=== PATIENT | female | born 1990 | race Hispanic/Latino ===

== ENCOUNTER 2017-06-08 20:52 | Emergency (ER) | payer OTHER ==
[~2017-06-08] VITALS: Ht 154.9 cm; Wt 50.9 kg
[2017-06-08] MEDS ORDERED: KETOROLAC TROMETHAMINE 60 MG/2 ML VIAL IM ONE (21:30)
[2017-06-08] MEDS ORDERED: BELLADONNA ALK/PHENOBARBITAL 5 ML UDC PO ONE (21:30)
[2017-06-08] MEDS ORDERED: LIDOCAINE VISC 2% SOLN 15 ML UDC PO ONE (21:30)
[2017-06-08] MEDS ORDERED: MAGNESIUM/ALUMINUM/SIMETHICONE 30 ML UDC PO ONE (21:30)
[2017-06-08] MEDS ORDERED: KETOROLAC TROMETHAMINE 30 MG/ML VIAL IV STA (21:35)
[2017-06-08] MEDS ORDERED: IOPAMIDOL 370 MG/ML 50ML INFUS..BTL INJ ONE (22:30)
[2017-06-08 23:21] VITALS: BP 142/72
== END 2017-06-08 23:17 | disposition home or self-care (01) ==
LOC: FSED 20:52
DX: R07.89 Other chest pain (principal); R07.1 Chest pain on breathing
CPT/HCPCS: 71046; 71260; 80053; 85025; 93005; 96374; 99283; J1885 ×2; Q9967

== ENCOUNTER 2019-05-19 08:19 | Emergency (ER) | payer SELFPAY ==
[~2019-05-19] VITALS: Ht 154.9 cm; Wt 62.3 kg
[2019-05-19] MEDS ORDERED: ONDANSETRON HCL INJ 2MG/ML 2ML 2 MG/ML VIAL IV STA (09:00)
[2019-05-19] MEDS ORDERED: SODIUM CHLORIDE 0.9% 1000ML 1,000 ML IV STA (09:00)
[2019-05-19] MEDS ORDERED: SODIUM CHLORIDE 0.9% 1000ML 1,000 ML ONE (09:33)
[2019-05-19] MEDS ORDERED: CIPRO500 MG PO (10:21)
[2019-05-19] MEDS ORDERED: ZOFRAN4 MG SL (10:21)
[2019-05-19 10:32] VITALS: BP 139/95
== END 2019-05-19 11:11 | disposition home or self-care (01) ==
LOC: FSED 08:19
DX: R11.2 Nausea with vomiting, unspecified (principal); R19.7 Diarrhea, unspecified; N30.90 Cystitis, unspecified without hematuria
CPT/HCPCS: 80053; 80076; 81003; 81025; 85025; 96374; 99283; J2405; J7030

== ENCOUNTER 2019-06-05 13:55 | Emergency (ER) | payer SELFPAY ==
[~2019-06-05] VITALS: Ht 154.9 cm; Wt 61.2 kg
[~2019-06-05 13:55] MED LIST: CIPRO500 MG PO; ZOFRAN4 MG SL
--- OUTSIDE RECORDS SUMMARY | 2019-06-05 13:58 | XMS REPORT ---
[facility] Address Unknown Phone Unavailable Care Team Providers Care Maintenance Department Technician Name Role Phone Unavailable Unavailable Payers Payer Name Policy Type Policy Number Effective Date Expiration Date Problems This patient has no known problems. Allergies, Adverse Reactions, Alerts Allergy Name Allergy Type Status Severity Reaction(s) Onset Date Inactive Date Treating Clinician Comments tramadol DA Active U 2017-06-07 00:00:00 Medications This patient has no known medications. Results Test Description Test Time Test Comments Text Results Atomic Results Result Comments CBC W/AUTO DIFF 2018-10-23 03:46:00 WHITE BLOOD CELL (test code=WBC) 6.8 K/mm3 6.6-12.1 RED BLOOD CELL (test code=RBC) 4.04 M/mm3 3.45-5.01 HEMOGLOBIN (test code=HGB) 9.4 g/dL 10.7-13.9 HEMATOCRIT (test code=HCT) 32.6 % 32.1-42.1 MEAN CELL VOLUME (test code=MCV) 81 fL 84.1-94.8 MEAN CELL HGB (test code=MCH) 23.3 pg 27-35 MEAN CELL HGB CONCETRATION (test code=MCHC) 28.8 gm/dL 32.2-34.1 RED CELL DISTRIBUTION WIDTH (test code=RDW) 22.5 % 12.4-16.5 PLATELET COUNT (test code=PLT) 299 K/mm3 133-385 IMMATURE PLATELET FRACTION (test code=IPF) 0.0 % 0.0-10.8 MEAN PLATELET VOLUME (test code=MPV) 9.3 fl 9.1-12.7 NEUTROPHIL % (test code=NT%) 65.8 % 56.5-79.4 LYMPHOCYTE % (test code=LY%) 23.0 % 14.3-34.3 MONOCYTE % (test code=MO%) 7.1 % 5.1-10.4 EOSINOPHIL % (test code=EO%) 3.1 % 0.1-3.0 BASOPHIL % (test code=BA%) 0.6 % 0.1-1.0 NEUTROPHIL # (test code=NT#) 4.5 K/mm3 LYMPHOCYTE # (test code=LY#) 1.6 K/mm3 MONOCYTE # (test code=MO#) 0.5 K/mm3 EOSINOPHIL # (test code=EO#) 0.21 K/mm3 BASOPHIL # (test code=BA#) 0.0 K/mm3 RBC MORPHOLOGY REQUIRED (test code=RBCM) ABNORMAL NORMAL 2+HYPO2+ANISO PLATELET MORPHOLOGY REQUIRED (test code=PLTMR) NORMAL NORMAL CHEMISTRY 7 [id number] 22:13:00* Test Item Value Reference Range Comments SODIUM (test code=NA) 136 mEq/L 135-145 POTASSIUM (test code=K) 3.9 mEq/L 3.5-5.0 CHLORIDE (test code=CL) 103 mEq/L 100-115 CARBON DIOXIDE (test code=CO2) 25 mEq/L 22-31 ANION GAP (test code=GAP) 11.90 10-20 GLUCOSE (test code=GLU) 90 mg/dL 65-110 BLOOD UREA NITROGEN (test code=BUN) 12 mg/dL 7-18 GLOMERULAR FILTRATION RATE (test code=GFR) 120 ml/min >60 CREATININE (test code=CREAT) 0.6 mg/dL 0.5-1.0 CALCIUM (test code=CA) 8.6 mg/dL 8.4-10.2 CBC W/AUTO [id number] 22:03:00* Test Item Value Reference Range Comments WHITE BLOOD CELL (test code=WBC) 6.8 K/mm3 6.6-12.1 RED BLOOD CELL (test code=RBC) 4.04 M/mm3 3.45-5.01 HEMOGLOBIN (test code=HGB) 9.4 g/dL 10.7-13.9 HEMATOCRIT (test code=HCT) 32.6 % 32.1-42.1 MEAN CELL VOLUME (test code=MCV) 81 fL 84.1-94.8 MEAN CELL HGB (test code=MCH) 23.3 pg 27-35 MEAN CELL HGB CONCETRATION (test code=MCHC) 28.8 gm/dL 32.2-34.1 RED CELL DISTRIBUTION WIDTH (test code=RDW) 22.5 % 12.4-16.5 PLATELET COUNT (test code=PLT) 299 K/mm3 133-385 IMMATURE PLATELET FRACTION (test code=IPF) 0.0 % 0.0-10.8 MEAN PLATELET VOLUME (test code=MPV) 9.3 fl 9.1-12.7 NEUTROPHIL % (test code=NT%) 65.8 % 56.5-79.4 LYMPHOCYTE % (test code=LY%) 23.0 % 14.3-34.3 MONOCYTE % (test code=MO%) 7.1 % 5.1-10.4 EOSINOPHIL % (test code=EO%) 3.1 % 0.1-3.0 BASOPHIL % (test code=BA%) 0.6 % 0.1-1.0 NEUTROPHIL # (test code=NT#) 4.5 K/mm3 LYMPHOCYTE # (test code=LY#) 1.6 K/mm3 MONOCYTE # (test code=MO#) 0.5 K/mm3 EOSINOPHIL # (test code=EO#) 0.21 K/mm3 BASOPHIL # (test code=BA#) 0.0 K/mm3 RBC MORPHOLOGY REQUIRED (test code=RBCM) NORMAL PLATELET MORPHOLOGY REQUIRED (test code=PLTMR) NORMAL UA RFLX MICR CULT IF [id number] 21:43:00* Test Item Value Reference Range Comments UA COLOR (test code=COLU) YELLOW YELLOW UA APPEARANCE (test code=APPU) Slightly-Cloudy CLEAR UA GLUCOSE DIPSTICK (test code=DGLUU) NEGATIVE NEG UA BILIRUBIN DIPSTICK (test code=BILU) NEGATIVE NEG UA KETONE DIPSTICK (test code=KETU) NEGATIVE NEG UA SPECIFIC GRAVITY (test code=SGU) 1.021 1.001-1.035 UA BLOOD DIPSTICK (test code=CHRISTOPHER) 3+ NEG UA PH DIPSTICK (test code=ILEANA) 6.0 5-9 UA PROTEIN DIPSTICK (test code=PROU) NEGATIVE NEG UA UROBILINIOGEN DIPSTICK (test code=URO) 2.0 mg/dL NEG UA NITRITE DIPSTICK (test code=MODESTO) NEG NEG UA LEUKOCYTE ESTERASE DIPSTICK (test code=LEUU) 1+ NEG UA WBC (test code=WBCU) 16-20 #/hpf NONE SEEN UA RBC (test code=RBCU) TOO NUMEROUS TO CNT #/hpf NONE SEEN UA EPITHELIAL CELLS (test code=EPIU) FEW #/HPF RARE-FEW UA MUCUS (test code=MUCU) RARE NONE SEEN Indication for culture: Dysuria/FrequencyHGB [id number] 09:16:00* Test Item Value Reference Range Comments HEMOGLOBIN (test code=HGB) 9.6 g/dL 10.7-13.9 HEMATOCRIT (test code=HCT) 33.3 % 32.1-42.1 AG HEPATITIS B [id number] 06:28:00* Test Item Value Reference Range Comments AG HEPATITIS B SURFACE (test code=HBSAG) NONREACTIVE NONREACTIVE AB HEPATITIS C [id number] 06:28:00* Test Item Value Reference Range Comments AB HEPATITIS C (test code=HCVAB) NONREACTIVE NONREACTIVE SIGNAL TO CUTOFF (test code=CUTOFF) 0.23 <0.80 AB [id number] 06:28:00* Test Item Value Reference Range Comments AB TREPONEMA (test code=TREPAB) NONREACTIVE NONREACTIVE AG HEPATITIS B [id number] 05:55:00* Test Item Value Reference Range Comments AG HEPATITIS B SURFACE (test code=HBSAG) NONREACTIVE NONREACTIVE AB HEPATITIS C [id number] 05:55:00* Test Item Value Reference Range Comments AB HEPATITIS C (test code=HCVAB) NONREACTIVE SIGNAL TO CUTOFF (test code=CUTOFF) <0.80 AB [id number] 05:55:00* Test Item Value Reference Range Comments AB TREPONEMA (test code=TREPAB) NONREACTIVE NONREACTIVE CBC W/AUTO [id number] 05:19:00* Test Item Value Reference Range Comments WHITE BLOOD CELL (test code=WBC) 10.3 K/mm3 6.6-12.1 RED BLOOD CELL (test code=RBC) 4.49 M/mm3 3.45-5.01 HEMOGLOBIN (test code=HGB) 10.3 g/dL 10.7-13.9 HEMATOCRIT (test code=HCT) 35.5 % 32.1-42.1 MEAN CELL VOLUME (test code=MCV) 79 fL 84.1-94.8 MEAN CELL HGB (test code=MCH) 22.9 pg 27-35 MEAN CELL HGB CONCETRATION (test code=MCHC) 29.0 gm/dL 32.2-34.1 RED CELL DISTRIBUTION WIDTH (test code=RDW) 23.6 % 12.4-16.5 PLATELET COUNT (test code=PLT) 240 K/mm3 133-385 IMMATURE PLATELET FRACTION (test code=IPF) 0.0 % 0.0-10.8 MEAN PLATELET VOLUME (test code=MPV) 10.0 fl 9.1-12.7 NEUTROPHIL % (test code=NT%) 73.1 % 56.5-79.4 LYMPHOCYTE % (test code=LY%) 18.9 % 14.3-34.3 MONOCYTE % (test code=MO%) 6.8 % 5.1-10.4 EOSINOPHIL % (test code=EO%) 0.5 % 0.1-3.0 BASOPHIL % (test code=BA%) 0.2 % 0.1-1.0 NEUTROPHIL # (test code=NT#) 7.5 K/mm3 LYMPHOCYTE # (test code=LY#) 2.0 K/mm3 MONOCYTE # (test code=MO#) 0.7 K/mm3 EOSINOPHIL # (test code=EO#) 0.05 K/mm3 BASOPHIL # (test code=BA#) 0.0 K/mm3 RBC MORPHOLOGY REQUIRED (test code=RBCM) NORMAL NORMAL PLATELET MORPHOLOGY REQUIRED (test code=PLTMR) NORMAL NORMAL COMPREHENSIVE METABOLIC [id number] 19:56:00* Test Item Value Reference Range Comments SODIUM (test code=NA) 133 mEq/L 135-145 POTASSIUM (test code=K) 3.6 mEq/L 3.5-5.0 CHLORIDE (test code=CL) 100 mEq/L 100-115 CARBON DIOXIDE (test code=CO2) 22 mEq/L 22-31 ANION GAP (test code=GAP) 14.70 10-20 GLUCOSE (test code=GLU) 82 mg/dL 65-110 BLOOD UREA NITROGEN (test code=BUN) 8 mg/dL 7-18 GLOMERULAR FILTRATION RATE (test code=GFR) 120 ml/min >60 CREATININE (test code=CREAT) 0.6 mg/dL 0.5-1.0 TOTAL PROTEIN (test code=PROT) 7.5 gm/dL 6.3-8.2 ALBUMIN (test code=ALB) 2.2 gm/dL 3.4-4.8 CALCIUM (test code=CA) 7.8 mg/dL 8.4-10.2 BILIRUBIN TOTAL (test code=BILT) 0.3 mg/dL 0.2-1.0 SGOT/AST (test code=AST) 17 units/L 15-37 SGPT/ALT (test code=ALT) 14 units/L 12-78 ALKALINE PHOSPHATASE TOTAL (test code=ALKP) 181 units/L 46-116 UA RFLX MICR CULT IF [id number] 19:40:00* Test Item Value Reference Range Comments UA COLOR (test code=COLU) YELLOW YELLOW UA APPEARANCE (test code=APPU) CLEAR CLEAR UA GLUCOSE DIPSTICK (test code=DGLUU) NEGATIVE NEG UA BILIRUBIN DIPSTICK (test code=BILU) NEGATIVE NEG UA KETONE DIPSTICK (test code=KETU) NEGATIVE NEG UA SPECIFIC GRAVITY (test code=SGU) 1.017 1.001-1.035 UA BLOOD DIPSTICK (test code=CHRISTOPHER) NEG NEG UA PH DIPSTICK (test code=ILEANA) 6.0 5-9 UA PROTEIN DIPSTICK (test code=PROU) NEGATIVE NEG UA UROBILINIOGEN DIPSTICK (test code=URO) 4.0 mg/dL NEG UA NITRITE DIPSTICK (test code=MODESTO) NEG NEG UA LEUKOCYTE ESTERASE DIPSTICK (test code=LEUU) NEG NEG UA WBC (test code=WBCU) 0-2 #/hpf NONE SEEN UA RBC (test code=RBCU) 0-2 #/hpf NONE SEEN UA EPITHELIAL CELLS (test code=EPIU) FEW #/HPF RARE-FEW UA BACTERIA (test code=BACU) NEGATIVE /HPF RARE-FEW UA MUCUS (test code=MUCU) RARE NONE SEEN CBC W/AUTO [id number] 19:34:00* Test Item Value Reference Range Comments WHITE BLOOD CELL (test code=WBC) 8.7 K/mm3 6.6-12.1 RED BLOOD CELL (test code=RBC) 3.88 M/mm3 3.45-5.01 HEMOGLOBIN (test code=HGB) 8.3 g/dL 10.7-13.9 HEMATOCRIT (test code=HCT) 27.7 % 32.1-42.1 MEAN CELL VOLUME (test code=MCV) 71 fL 84.1-94.8 MEAN CELL HGB (test code=MCH) 21.4 pg 27-35 MEAN CELL HGB CONCETRATION (test code=MCHC) 30.0 gm/dL 32.2-34.1 RED CELL DISTRIBUTION WIDTH (test code=RDW) 17.2 % 12.4-16.5 PLATELET COUNT (test code=PLT) 276 K/mm3 133-385 IMMATURE PLATELET FRACTION (test code=IPF) 0.0 % 0.0-10.8 MEAN PLATELET VOLUME (test code=MPV) 9.7 fl 9.1-12.7 NEUTROPHIL % (test code=NT%) 73.1 % 56.5-79.4 LYMPHOCYTE % (test code=LY%) 19.1 % 14.3-34.3 MONOCYTE % (test code=MO%) 6.3 % 5.1-10.4 EOSINOPHIL % (test code=EO%) 0.5 % 0.1-3.0 BASOPHIL % (test code=BA%) 0.1 % 0.1-1.0 NEUTROPHIL # (test code=NT#) 6.4 K/mm3 LYMPHOCYTE # (test code=LY#) 1.7 K/mm3 MONOCYTE # (test code=MO#) 0.6 K/mm3 EOSINOPHIL # (test code=EO#) 0.04 K/mm3 BASOPHIL # (test code=BA#) 0.0 K/mm3 RBC MORPHOLOGY REQUIRED (test code=RBCM) NORMAL NORMAL PLATELET MORPHOLOGY REQUIRED (test code=PLTMR) NORMAL NORMAL
== END 2019-06-05 14:43 | disposition left against medical advice (07) ==
LOC: FSED 13:55
DX: R50.9 Fever, unspecified (principal); J02.9 Acute pharyngitis, unspecified

== ENCOUNTER 2019-11-04 15:55 | Emergency (ER) | payer SELFPAY ==
[~2019-11-04] VITALS: Ht 154.9 cm; Wt 65.3 kg
--- OUTSIDE RECORDS SUMMARY | 2019-11-04 16:13 | XMS REPORT | Continuity of Care Document ---
Author Author [facility] Address Unknown Phone Unavailable Care Team Providers Care Boom Master Name Role Phone [email or web address] [facility] Unavailable Un available Problems Problem Status Onset Date Classification Date Reported Comments Source 37 weeks gestation of Active Diagnosis 1 03/28/2016 Ahmed Ahmed Gastroesophageal reflux disease without esophagitis Active Diagnosis 01/26/2017 Ahmed Ahmed Precordial pain Active Diagnosis 01/26/2017 Ahmed Ahmed Medications Medication Details Route Status Patient Instructions Ordering Provider Order Date Source Iron not defined NA Active Ahme d Ahmed Ahmed 1 tablet Orally Active - Orally Once a day Ahmed Ahmed Ahmed Allergies, Adverse Reactions, Alerts Substance Category Reaction Severity Reaction type Status Date Reported Comments Source N.K.D.A. Adverse Reaction Info Not Available Adverse Reaction Active 07/30/2016 Ahmed Ahmed Immunizations No Data Provided for This Section Results No Data Provided for This Section Pathology Reports No Data Provided for This Section Diagnostic Reports No Data Provided for This Section Consultation Notes No Data Provided for This Section Discharge Summaries No Data Provided for This Section History and Physicals No Data Provided for This Section Vital Signs Vital Sign Value Date Comments Source Weight 139 07/30/2016 Ahmed Ahmed Heart Rate 94 07/30/2016 Ahmed Ahmed Diastolic (mm Hg) 60 07/30/2016 Ahmed Ahmed Systolic (mm Hg) 92 07/30/2016 Ahmed Ahmed Encounters No Data Provided for This Section Procedures No Data Provided for This Section Assessment and Plan No Data Provided for This Section Plan of Care No Data Provided for This Section Social History No Data Provided for This Section Family History No Data Provided for This Section Advance Directives No Data Provided for This Section Functional Status No Data Provided for This Section
--- OUTSIDE RECORDS SUMMARY | 2019-11-04 16:13 | XMS REPORT | Continuity of Care Document ---
Author Author [facility] t Organization [facility] Address [address] [place] [address] Phone Unavailable Care Team Providers Care Bookmaker'S Clerk Name Role Phone NO, PCP PCP Unavailable Payers Payer Name Policy Type Policy Number Effective Date Expiration Date S ource Self Pay NA [facility] [employer] [id number] [facility] Problems Condition Name Condition Details Condition Category Status Onset Date Resolution Date Last Treatment Date Treating Clinician Comments Source 37 weeks gestation of 37 weeks gestation of Active Diagnosis 01/26/2017 [facility] Diagnosis Active 2017-01-26 04:15:14 [facility] Gastroesophageal reflux disease without esophagitis Gastroesophageal reflux disease without esophagitis Active Diagnosis 01/26/2017 [facility] Diagnosis Active 2017-01-26 04:15:14 [facility] Precordial pain Prec ordial pain Active Diagnosis 01/26/2017 [facility] Diagnosis Active 2017-01-26 04:15:14 [facility] Allergies, Adverse Reactions, Alerts Allergy Name Allergy Type Status Severity Reaction(s) Onset Date Inacti ve Date Treating Clinician Comments Source tramadol DA Active U 2019-06-05 00:00:00 [facility] Tramadol Allergy to Substance Active Moderate Seizures 2017-06-08 00:00 :00 [facility] tramadol DA Active U 2017-06-07 00:00:00 [facility] N[facility]K.D[facility] Active Info Not Available 2016-07-30 00:00:00 [facility] Medications Ordered Medication Name Filled Medication Name Start Date Stop Da te Current Medication? Ordering Clinician Indication Dosage Frequency Signature (SIG) Comments Components Source Ciprofloxacin Hcl (Cipro) 500 Mg Tablet Ciprofloxacin Hcl (C ipro) 500 Mg Tablet 2019-05-19 00:00:00 Yes Irving Harris Md 500 Every 12 Hours [facility] Ondansetron Hcl (Zofran*) 4 Mg Tablet Ondansetron Hcl (Zofra n*) 4 Mg Tablet 2019-05-19 00:00:00 Yes Irving Harris Md 4 Every 6 Hours as needed for Nausea [facility] 2017-01-26 04:15:14 Yes Meg Weaver not defi nilda [facility] 2017-01-26 04:15:14 Yes Meg Weaver 1 ta blet [facility] Vital Signs Vital Name Observation Time Observation Value Comments Source Weight 2016-07-30 20:15:00 [facility] Heart Rate 2016-07-30 20:15:00 [facility] Diastolic (mm Hg) 2016-07-30 20:15:00 [facility] Systolic (mm Hg) 2016-07-30 20:15:00 Dennis rial [place] Procedures This patient has no known procedures. Encounters Start Date/Time End Date/Time Encounter Type [facility] Encounter ID Source 2019-06-05 13:55:00 2019-06-05 14:43:00 Departed Emergency Room [facility] [id number] [facility] 2019-05-19 08:19:00 2019-05-19 11:11:00 Departed Emergency Room [facility] [id number] [facility] 2017-06-08 20:52:00 2017-06-08 23:17:00 Departed Emergency Room [facility] [id number] [facility] 2016-07-30 14:15:00 2016-07-30 14:15:00 [facility]iology Shawn [id number] [employer] Results Test Description Test Time Test Comments Results Result Comments Source CBC W/AUTO DIFF 2018-10-23 03:46:00 Test Item WHITE BLOOD CELL (test code = WBC) 6.8 K/mm3 6.6-12.1 N RED BLOOD CELL (test code = RBC) 4.04 M/mm3 3.45-5.01 N HEMOGLOBIN (test code = HGB) 9.4 g/dL 10.7-13.9 L HEMATOCRIT (test code = HCT) 32.6 % 32.1-42.1 N MEAN CELL VOLUME (test code = MCV) 81 fL 84.1-94.8 L MEAN CELL HGB (test code = MCH) 23.3 pg 27-35 L MEAN CELL HGB CONCETRATION (test code = MCHC) 28.8 gm/dL 32.2-34. 1 L RED CELL DISTRIBUTION WIDTH (test code = RDW) 22.5 % 12.4-16. 5 H PLATELET COUNT (test code = PLT) 299 K/mm3 133-385 N IMMATURE PLATELET FRACTION (test code = IPF) 0.0 % 0.0-10.8 N MEAN PLATELET VOLUME (test code = MPV) 9.3 fl 9.1-12.7 N NEUTROPHIL % (test code = NT%) 65.8 % 56.5-79.4 N LYMPHOCYTE % (test code = LY%) 23.0 % 14.3-34.3 N MONOCYTE % (test code = MO%) 7.1 % 5.1-10.4 N EOSINOPHIL % (test code = EO%) 3.1 % 0.1-3.0 H BASOPHIL % (test code = BA%) 0.6 % 0.1-1.0 N NEUTROPHIL # (test code = NT#) 4.5 K/mm3 LYMPHOCYTE # (test code = LY#) 1.6 K/mm3 MONOCYTE # (test code = MO#) 0.5 K/mm3 EOSINOPHIL # (test code = EO#) 0.21 K/mm3 BASOPHIL # (test code = BA#) 0.0 K/mm3 RBC MORPHOLOGY REQUIRED (test code = RBCM) ABNORMAL NORMAL 2+HYPO2+ANISO PLATELET MORPHOLOGY REQUIRED (test code = PLTMR) NORMAL CONY L CHEMISTRY 7 [id number] 22:13:00* Test Item Value Reference Range Interpretation Comments SODIUM (test code = NA) 136 mEq/L 135-145 N POTASSIUM (test code = K) 3.9 mEq/L 3.5-5.0 N CHLORIDE (test code = CL) 103 mEq/L 100-115 N CARBON DIOXIDE (test code = CO2) 25 mEq/L 22-31 N ANION GAP (test code = GAP) 11.90 10-20 N GLUCOSE (test code = GLU) 90 mg/dL 65-110 N BLOOD UREA NITROGEN (test code = BUN) 12 mg/dL 7-18 N GLOMERULAR FILTRATION RATE (test code = GFR) 120 ml/min >60 N CREATININE (test code = CREAT) 0.6 mg/dL 0.5-1.0 N CALCIUM (test code = CA) 8.6 mg/dL 8.4-10.2 N CBC W/AUTO [id number] 22:03:00* Test Item Value Reference Range Interpretation Comments WHITE BLOOD CELL (test code = WBC) 6.8 K/mm3 6.6-12.1 N RED BLOOD CELL (test code = RBC) 4.04 M/mm3 3.45-5.01 N HEMOGLOBIN (test code = HGB) 9.4 g/dL 10.7-13.9 L HEMATOCRIT (test code = HCT) 32.6 % 32.1-42.1 N MEAN CELL VOLUME (test code = MCV) 81 fL 84.1-94.8 L MEAN CELL HGB (test code = MCH) 23.3 pg 27-35 L MEAN CELL HGB CONCETRATION (test code = MCHC) 28.8 gm/dL 32.2-34. 1 L RED CELL DISTRIBUTION WIDTH (test code = RDW) 22.5 % 12.4-16. 5 H PLATELET COUNT (test code = PLT) 299 K/mm3 133-385 N IMMATURE PLATELET FRACTION (test code = IPF) 0.0 % 0.0-10.8 N MEAN PLATELET VOLUME (test code = MPV) 9.3 fl 9.1-12.7 N NEUTROPHIL % (test code = NT%) 65.8 % 56.5-79.4 N LYMPHOCYTE % (test code = LY%) 23.0 % 14.3-34.3 N MONOCYTE % (test code = MO%) 7.1 % 5.1-10.4 N EOSINOPHIL % (test code = EO%) 3.1 % 0.1-3.0 H BASOPHIL % (test code = BA%) 0.6 % 0.1-1.0 N NEUTROPHIL # (test code = NT#) 4.5 K/mm3 LYMPHOCYTE # (test code = LY#) 1.6 K/mm3 MONOCYTE # (test code = MO#) 0.5 K/mm3 EOSINOPHIL # (test code = EO#) 0.21 K/mm3 BASOPHIL # (test code = BA#) 0.0 K/mm3 RBC MORPHOLOGY REQUIRED (test code = RBCM) NORMAL PLATELET MORPHOLOGY REQUIRED (test code = PLTMR) CONY L UA RFLX MICR CULT IF [id number] 21:43:00* Test Item Value Reference Range Interpretation Comments UA COLOR (test code = COLU) YELLOW YELLOW UA APPEARANCE (test code = APPU) Slightly-Cloudy CLEAR UA GLUCOSE DIPSTICK (test code = DGLUU) NEGATIVE NEG UA BILIRUBIN DIPSTICK (test code = BILU) NEGATIVE NEG UA KETONE DIPSTICK (test code = KETU) NEGATIVE NEG UA SPECIFIC GRAVITY (test code = SGU) 1.021 1.001-1.035 N UA BLOOD DIPSTICK (test code = CHRISTOPHER) 3+ NEG A UA PH DIPSTICK (test code = ILEANA) 6.0 5-9 UA PROTEIN DIPSTICK (test code = PROU) NEGATIVE NEG UA UROBILINIOGEN DIPSTICK (test code = URO) 2.0 mg/dL NEG UA NITRITE DIPSTICK (test code = MODESTO) NEG NEG UA LEUKOCYTE ESTERASE DIPSTICK (test code = LEUU) 1+ NEG A UA WBC (test code = WBCU) 16-20 #/hpf NONE SEEN A UA RBC (test code = RBCU) TOO NUMEROUS TO CNT #/hpf NONE SEEN A UA EPITHELIAL CELLS (test code = EPIU) FEW #/HPF RARE-FEW UA MUCUS (test code = MUCU) RARE NONE SEEN Indication for culture: Dysuria/FrequencyHGB [id number] 09:16:00* Test Item Value Reference Range Interpretation Comments HEMOGLOBIN (test code = HGB) 9.6 g/dL 10.7-13.9 L HEMATOCRIT (test code = HCT) 33.3 % 32.1-42.1 N AG HEPATITIS B [id number] 06:28:00* Test Item Value Reference Range Interpretation Comments AG HEPATITIS B SURFACE (test code = HBSAG) NONREACTIVE NONREACTIVE AB HEPATITIS C [id number] 06:28:00* Test Item Value Reference Range Interpretation Comments AB HEPATITIS C (test code = HCVAB) NONREACTIVE NONREACTIVE SIGNAL TO CUTOFF (test code = CUTOFF) 0.23 <0.80 N AB [id number] 06:28:00* Test Item Value Reference Range Interpretation Comments AB TREPONEMA (test code = TREPAB) NONREACTIVE NONREACTIVE AG HEPATITIS B [id number] 05:55:00* Test Item Value Reference Range Interpretation Comments AG HEPATITIS B SURFACE (test code = HBSAG) NONREACTIVE NONREACTIVE AB HEPATITIS C [id number] 05:55:00* Test Item Value Reference Range Interpretation Comments AB HEPATITIS C (test code = HCVAB) NONREACTIVE SIGNAL TO CUTOFF (test code = CUTOFF) <0.80 AB [id number] 05:55:00* Test Item Value Reference Range Interpretation Comments AB TREPONEMA (test code = TREPAB) NONREACTIVE NONREACTIVE CBC W/AUTO [id number] 05:19:00* Test Item Value Reference Range Interpretation Comments WHITE BLOOD CELL (test code = WBC) 10.3 K/mm3 6.6-12.1 N RED BLOOD CELL (test code = RBC) 4.49 M/mm3 3.45-5.01 N HEMOGLOBIN (test code = HGB) 10.3 g/dL 10.7-13.9 L HEMATOCRIT (test code = HCT) 35.5 % 32.1-42.1 N MEAN CELL VOLUME (test code = MCV) 79 fL 84.1-94.8 L MEAN CELL HGB (test code = MCH) 22.9 pg 27-35 L MEAN CELL HGB CONCETRATION (test code = MCHC) 29.0 gm/dL 32.2-34. 1 L RED CELL DISTRIBUTION WIDTH (test code = RDW) 23.6 % 12.4-16. 5 H PLATELET COUNT (test code = PLT) 240 K/mm3 133-385 N IMMATURE PLATELET FRACTION (test code = IPF) 0.0 % 0.0-10.8 N MEAN PLATELET VOLUME (test code = MPV) 10.0 fl 9.1-12.7 N NEUTROPHIL % (test code = NT%) 73.1 % 56.5-79.4 N LYMPHOCYTE % (test code = LY%) 18.9 % 14.3-34.3 N MONOCYTE % (test code = MO%) 6.8 % 5.1-10.4 N EOSINOPHIL % (test code = EO%) 0.5 % 0.1-3.0 N BASOPHIL % (test code = BA%) 0.2 % 0.1-1.0 N NEUTROPHIL # (test code = NT#) 7.5 K/mm3 LYMPHOCYTE # (test code = LY#) 2.0 K/mm3 MONOCYTE # (test code = MO#) 0.7 K/mm3 EOSINOPHIL # (test code = EO#) 0.05 K/mm3 BASOPHIL # (test code = BA#) 0.0 K/mm3 RBC MORPHOLOGY REQUIRED (test code = RBCM) NORMAL NORMAL PLATELET MORPHOLOGY REQUIRED (test code = PLTMR) NORMAL CONY L COMPREHENSIVE METABOLIC [id number] 19:56:00* Test Item Value Reference Range Interpretation Comments SODIUM (test code = NA) 133 mEq/L 135-145 L POTASSIUM (test code = K) 3.6 mEq/L 3.5-5.0 N CHLORIDE (test code = CL) 100 mEq/L 100-115 N CARBON DIOXIDE (test code = CO2) 22 mEq/L 22-31 N ANION GAP (test code = GAP) 14.70 10-20 N GLUCOSE (test code = GLU) 82 mg/dL 65-110 N BLOOD UREA NITROGEN (test code = BUN) 8 mg/dL 7-18 N GLOMERULAR FILTRATION RATE (test code = GFR) 120 ml/min >60 N CREATININE (test code = CREAT) 0.6 mg/dL 0.5-1.0 N TOTAL PROTEIN (test code = PROT) 7.5 gm/dL 6.3-8.2 N ALBUMIN (test code = ALB) 2.2 gm/dL 3.4-4.8 L CALCIUM (test code = CA) 7.8 mg/dL 8.4-10.2 L BILIRUBIN TOTAL (test code = BILT) 0.3 mg/dL 0.2-1.0 N SGOT/AST (test code = AST) 17 units/L 15-37 N SGPT/ALT (test code = ALT) 14 units/L 12-78 N ALKALINE PHOSPHATASE TOTAL (test code = ALKP) 181 units/L 46-116 H UA RFLX MICR CULT IF [id number] 19:40:00* Test Item Value Reference Range Interpretation Comments UA COLOR (test code = COLU) YELLOW YELLOW UA APPEARANCE (test code = APPU) CLEAR CLEAR UA GLUCOSE DIPSTICK (test code = DGLUU) NEGATIVE NEG UA BILIRUBIN DIPSTICK (test code = BILU) NEGATIVE NEG UA KETONE DIPSTICK (test code = KETU) NEGATIVE NEG UA SPECIFIC GRAVITY (test code = SGU) 1.017 1.001-1.035 N UA BLOOD DIPSTICK (test code = CHRISTOPHER) NEG NEG UA PH DIPSTICK (test code = ILEANA) 6.0 5-9 UA PROTEIN DIPSTICK (test code = PROU) NEGATIVE NEG UA UROBILINIOGEN DIPSTICK (test code = URO) 4.0 mg/dL NEG A UA NITRITE DIPSTICK (test code = MODESTO) NEG NEG UA LEUKOCYTE ESTERASE DIPSTICK (test code = LEUU) NEG NEG UA WBC (test code = WBCU) 0-2 #/hpf NONE SEEN UA RBC (test code = RBCU) 0-2 #/hpf NONE SEEN UA EPITHELIAL CELLS (test code = EPIU) FEW #/HPF RARE-FEW UA BACTERIA (test code = BACU) NEGATIVE /HPF RARE-FEW UA MUCUS (test code = MUCU) RARE NONE SEEN CBC W/AUTO [id number] 19:34:00* Test Item Value Reference Range Interpretation Comments WHITE BLOOD CELL (test code = WBC) 8.7 K/mm3 6.6-12.1 N RED BLOOD CELL (test code = RBC) 3.88 M/mm3 3.45-5.01 N HEMOGLOBIN (test code = HGB) 8.3 g/dL 10.7-13.9 L HEMATOCRIT (test code = HCT) 27.7 % 32.1-42.1 L MEAN CELL VOLUME (test code = MCV) 71 fL 84.1-94.8 L MEAN CELL HGB (test code = MCH) 21.4 pg 27-35 L MEAN CELL HGB CONCETRATION (test code = MCHC) 30.0 gm/dL 32.2-34. 1 L RED CELL DISTRIBUTION WIDTH (test code = RDW) 17.2 % 12.4-16. 5 H PLATELET COUNT (test code = PLT) 276 K/mm3 133-385 N IMMATURE PLATELET FRACTION (test code = IPF) 0.0 % 0.0-10.8 N MEAN PLATELET VOLUME (test code = MPV) 9.7 fl 9.1-12.7 N NEUTROPHIL % (test code = NT%) 73.1 % 56.5-79.4 N LYMPHOCYTE % (test code = LY%) 19.1 % 14.3-34.3 N MONOCYTE % (test code = MO%) 6.3 % 5.1-10.4 N EOSINOPHIL % (test code = EO%) 0.5 % 0.1-3.0 N BASOPHIL % (test code = BA%) 0.1 % 0.1-1.0 N NEUTROPHIL # (test code = NT#) 6.4 K/mm3 LYMPHOCYTE # (test code = LY#) 1.7 K/mm3 MONOCYTE # (test code = MO#) 0.6 K/mm3 EOSINOPHIL # (test code = EO#) 0.04 K/mm3 BASOPHIL # (test code = BA#) 0.0 K/mm3 RBC MORPHOLOGY REQUIRED (test code = RBCM) NORMAL NORMAL PLATELET MORPHOLOGY REQUIRED (test code = PLTMR) NORMAL CONY L
[2019-11-04] MEDS ORDERED: CLINDAMYCIN PHOS 600 MG/ 4 ML VIAL IM ONE (16:35)
[2019-11-04] MEDS ORDERED: HYDROCODONE/APAP 5MG-325MG TAB PO ONE (16:45)
[2019-11-04] MEDS ORDERED: KETOROLAC TROMETHAMINE 60 MG/2 ML VIAL IM ONE (16:45)
[2019-11-04] MEDS ORDERED: HYDROCODONE/APAP 5MG-325MG TAB ONE (17:25)
[2019-11-04] MEDS ORDERED: CLINDAMYCIN PHOS 600 MG/ 4 ML VIAL ONE (17:25)
[2019-11-04] MEDS ORDERED: KETOROLAC TROMETHAMINE 60 MG/2 ML VIAL ONE (17:25)
[2019-11-04] MEDS ORDERED: PREDNISONE 20 MG TAB ONE (17:25)
[2019-11-04] MEDS ORDERED: BACTRIM DS TAB1 EACH PO (18:05)
[2019-11-04] MEDS ORDERED: PREDNISONE20 MG PO (18:05)
[2019-11-04] MEDS ORDERED: CLINDAMYCIN HC300 MG PO (18:05)
--- NOTE | 2019-11-04 18:07 | Emergency Department Note ---
History of Present Illnes History of Present Illness Chief Complaint: LEFT BUTTOCK ABSCESS/PAINFUL RASH History of Present Illness This is a 29 year old female. was doing well prior to this. then boil /painful rash left buttock Historian: Patient Arrival Mode: Car Additional Treatment GETTERER: warm compresses/cream History limited by: condition of the patient (stable) Trampoline Team Coach Required: No Onset (how long ago): day(s) (3) Location: left buttock Quality: sharp Radiation: Reports non-radiation Severity: moderate Onset quality: gradual Duration (how long): day(s) (3) Timing of current episode: constant Progression: worsening Chronicity: recurrent (abscess/cellulitis) Context: Denies recent illness, Denies recent surgery, Denies recent immobilization, Denies recent travel, Denies trauma/injury, Denies new medications, Denies hx of DVT/PE, Denies non-compliance w/ medications Relieving factors: none Exacerbating factors: movement Associated symptoms: Reports denies other symptoms Treatments prior to arrival: none Past Medical/Family History Physician Review I have reviewed the patient's past medical and family history. Any updates have been documented here. Past Medical History Recent Fever: No Clinical Suspicion of Infectio: No New/Unexplained Change in Ment: No Past Medical History: None Other Medical History: Pancreatitis Past Surgical History: Appendectomy Other Surgery: D&C Social History Smoking Cessation: Never Smoker Counseling Performed: No Alcohol Use: None Any Illegal Drug Use: No Physically hurt or threatened: No Other Any Pre-Existing Lines (PICC,: No Review of Systems Review of Systems Constitutional: Reports no symptoms EENTM: Reports no symptoms Cardiovascular: Reports no symptoms Respiratory: Reports no symptoms Gastrointestinal: Reports no symptoms Genitourinary: Reports no symptoms Musculoskeletal: Reports no symptoms Integumentary: Reports as per HPI, Reports rash Neurological: Reports no symptoms Psychological: Reports no symptoms Endocrine: Reports no symptoms Hematological/Lymphatic: Reports no symptoms Review of other systems: All other systems negative Physical Exam Related Data Allergies: Coded Allergies: tramadol (Verified Allergy, Intermediate, Seizures, 06/08/17) Triage Vital Signs Vital Signs Date Time Temp Pulse Resp B/P (MAP) Pulse Ox O2 Delivery O2 Flow Rate FiO2 11/04/19 16:00 99.3 80 13 108/61 99 Room Air Vital signs reviewed: Yes Physical Exam CONSTITUTIONAL Constitutional: Present well-developed, Present well-nourished HENT HENT: Present normocephalic, Present atraumatic, Present oropharynx clear/moist, Present nose normal HENT L/R: Present left ext ear normal, Present right ext ear normal EYES Eyes: Reports PERRL, Reports conjunctivae normal NECK Neck: Present ROM normal PULMONARY Pulmonary: Present effort normal, Present breath sounds normal CARDIOVASCULAR Cardiovascular: Present regular rhythm, Present heart sounds normal, Present capillary refill normal, Present normal rate GASTROINTESTINAL Abdominal: Present soft, Present nontender, Present bowel sounds normal GENITOURINARY Genitourinary: Present exam deferred SKIN Skin: Present warm, Present dry, Present erythema (left buttock, flucuant maculopapular blanching rash 6cm diameter) MUSCULOSKELETAL Musculoskeletal: Present ROM normal NEUROLOGICAL Neurological: Present alert, Present oriented x 3, Present no gross motor or sensory deficits PSYCHOLOGICAL Psychological: Present mood/affect normal, Present judgement normal Procedures Procedures Procedure: PT OPTED FOR NEEDLE ASPIRATION OF ABSCESS Incision and Drain Emergent situation: Yes Verbal consent obtained: Yes (needle aspiration) Prepped and draped in sterile: Yes Procedure verified: Yes Side verified: yes Site verified: yes Type: abscess Size: 3cm diameter Site: other (left buttock) Skin preparation: other (alcohol) Anesthesia method: none Patient sedated: No Needle aspiration: Yes Drainage: purulent Drainage amount: copious Patient tolerance: tolerated well Procedure attestation: I performed the procedure Assessment & Plan Medical Decision Making MDM ABSCESS /CELLULITIS Assessment & Plan Final Impression: (1) Cellulitis and abscess of buttock Depart Disposition: HOME, SELF-CARE Last Vital Signs Date Time Temp Pulse Resp B/P (MAP) Pulse Ox O2 Delivery O2 Flow Rate FiO2 11/04/19 16:00 99.3 80 13 108/61 99 Room Air Home Meds Active Scripts Prednisone (PREDNISONE) 20 Mg Tab, 20 MG PO DAILY PRN for MODERATE PAIN (4-6), #12 TAB TAKE 3 20 MG PILLS AT ONCE Prov:TIANA ROBB 11/04/19 Clindamycin Hcl (CLINDAMYCIN HCL) 300 Mg Capsule, 300 MG PO Q6H, #40 Prov:TIANA ROBB 11/04/19 Sulfamethoxazole/Trimethoprim (BACTRIM DS TABLET) 1 Each Tablet, 1 TAB PO Q12H, #28 TAB Prov:TIANA ROBB 11/04/19 Ciprofloxacin Hcl (CIPRO) 500 Mg Tablet, 500 MG PO Q12H, #10 TAB Prov:GOMEZ BRYANT MD 05/19/19 Ondansetron Hcl* (ZOFRAN*) 4 Mg Tablet, 4 MG SL Q6H PRN for NAUSEA, #14 MG 0 Refills Prov:GOMEZ BRYANT MD 05/19/19 Medications in the ED Clindamycin Phosphate 600 mg ONCE ONCE IM Last administered on 11/04/19at 17:30; Admin Dose 600 MG; Start 11/04/19 at 16:35; Stop 11/04/19 at 16:36 Ketorolac Tromethamine 60 mg ONCE ONCE IM Last administered on 11/04/19at 17:30; Admin Dose 60 MG; Start 11/04/19 at 16:45; Stop 11/04/19 at 16:46 Prednisone 60 mg DAILY PO Last administered on 11/04/19at 17:30; Admin Dose 60 MG; Start 11/05/19 at 09:00; Stop 11/12/19 at 08:59 Acetaminophen/ Hydrocodone Bitart 1 ea ONCE ONCE PO Last administered on 11/04/19at 17:30; Admin Dose 1 EA; Start 11/04/19 at 16:45; Stop 11/04/19 at 16:46 Prednisone 60 mg STK-MED ONCE .ROUTE ; Start 11/04/19 at 17:25; Stop 11/04/19 at 17:22; Status DC Ketorolac Tromethamine 60 mg STK-MED ONCE .ROUTE ; Start 11/04/19 at 17:25; Stop 11/04/19 at 17:22; Status DC Clindamycin Phosphate 600 mg STK-MED ONCE .ROUTE ; Start 11/04/19 at 17:25; Stop 11/04/19 at 17:22; Status DC Acetaminophen/ Hydrocodone Bitart 1 ea STK-MED ONCE .ROUTE ; Start 11/04/19 at 17:25; Stop 11/04/19 at 17:22; Status DC TIANA ROBB Nov 04, 2019 18:07
[2019-11-04 18:32] VITALS: BP 109/66
[2019-11-05] MEDS ORDERED: PREDNISONE 20 MG TAB PO SCH (09:00)
== END 2019-11-04 18:43 | disposition home or self-care (01) ==
LOC: FSED 15:55
DX: L02.31 Cutaneous abscess of buttock (principal); Z86.39 Personal history of other endocrine, nutritional and metabolic disease
CPT/HCPCS: 10060; 99283

== ENCOUNTER 2020-03-17 19:09 | Emergency (ER) | payer SELFPAY ==
[~2020-03-17] VITALS: Ht 154.9 cm; Wt 70.3 kg
[~2020-03-17 19:09] MED LIST changes: +BACTRIM DS TAB1 EACH PO; +CLINDAMYCIN HC300 MG PO; +PREDNISONE20 MG PO
[2020-03-17] MEDS ORDERED: KETOROLAC TROMETHAMINE 60 MG/2 ML VIAL IM ONE (19:45)
[2020-03-17] MEDS ORDERED: KETOROLAC TROMETHAMINE 60 MG/2 ML VIAL ONE (20:01)
[2020-03-17] MEDS ORDERED: TYLENOL # 31 EA PO (21:07)
[2020-03-17 21:18] VITALS: BP 116/74
== END 2020-03-17 21:18 | disposition home or self-care (01) ==
LOC: FSED 19:42
DX: S63.501A Unspecified sprain of right wrist, initial encounter (principal); Y08.89XA Assault by other specified means, initial encounter; W19.XXXA Unspecified fall, initial encounter; Y92.89 Other specified places as the place of occurrence of the external cause; Z88.6 Allergy status to analgesic agent
CPT/HCPCS: 73110; 96372; 99283; J1885

== ENCOUNTER 2020-05-28 13:48 | Emergency (ER) | payer SELFPAY ==
[~2020-05-28] VITALS: Ht 154.9 cm; Wt 60.8 kg
[~2020-05-28 13:48] MED LIST changes: +TYLENOL # 31 EA PO
[2020-05-28] MEDS ORDERED: AMOXICILLIN500 MG PO (14:46)
[2020-05-28] MEDS ORDERED: CORTISPORIN-TC10 M1 RIGHT EAR (14:47)
== END 2020-05-28 15:46 | disposition home or self-care (01) ==
LOC: FSED 14:30
DX: O26.892 Other specified pregnancy related conditions, second trimester (principal); S33.5XXA Sprain of ligaments of lumbar spine, initial encounter; H60.91 Unspecified otitis externa, right ear; W17.89XA Other fall from one level to another, initial encounter; Y93.01 Activity, walking, marching and hiking; Y92.89 Other specified places as the place of occurrence of the external cause
CPT/HCPCS: 99283

== ENCOUNTER 2022-01-21 22:04 | Emergency (ER) | payer MEDICARE, OTHER ==
[~2022-01-21] VITALS: Ht 154.9 cm; Wt 60.8 kg
[~2022-01-21 22:04] MED LIST changes: +AMOXICILLIN500 MG PO; +CORTISPORIN-TC10 M1 RIGHT EAR
[2022-01-21 22:59] LABS: BASOPHILS % 0.5 % (0.0-1.0); EOSINOPHILS # (AUTO) 0.1 (0.0-0.4); EOSINOPHILS % 1.8 % (0.0-6.0); HEMOGLOBIN 12.1 g/dL (12.0-16.0); LYMPHOCYTES # (AUTO) 2.9 (1.0-3.2); LYMPHOCYTES % 40.2 % (18.0-39.1); MEAN CORPUSCULAR HEMOGLOBIN 24.3 pg (28-32); MEAN CORPUSCULAR HGB CONC 30.3 g/dL (31-35); MEAN CORPUSCULAR VOLUME 80.5 fL (81-99); MONOCYTES # (AUTO) 0.5 (0.2-0.8); MONOCYTES % 6.2 % (4.4-11.3); NEUTROPHILS # (AUTO) 3.7 (2.1-6.9); NEUTROPHILS % 51.2 % (38.7-80.0); PLATELET COUNT 431 x10e3/uL (140-360); RED BLOOD COUNT 4.97 x10e6/uL (3.6-5.1); RED CELL DISTRIBUTION WIDTH 16.2 % (11.7-14.4)
[2022-01-21 23:17] LABS: ALBUMIN 3.7 g/dL (3.5-5.0); ALBUMIN/GLOBULIN RATIO 0.7 (0.8-2.0); ANION GAP 17.3 mmol/L (8-16); CALCIUM 8.9 mg/dL (8.4-10.2); CREATININE, SERUM 0.81 mg/dL (0.57-1.11); POTASSIUM 3.3 mmol/L (3.5-5.1)
[2022-01-21 23:20] LABS: SALICYLATE < 5.0 mg/dL (0-30)
[2022-01-22 00:18] LABS: AMPHETAMINES SCREEN,URINE NEGATIVE (NEGATIVE); CLARITY,URINE CLEAR (CLEAR); COLOR,URINE YELLOW (YELLOW); KETONES,URINE NEGATIVE (NEGATIVE); LEUKOCYTE ESTERASE ,URINE NEGATIVE (NEGATIVE); NITRITE,URINE NEGATIVE (NEGATIVE); PHENCYCLIDINE SCREEN,URINE NEGATIVE (NEGATIVE); PROTEIN,URINE DIPSTICK NEGATIVE (NEGATIVE)
[2022-01-22 00:19] LABS: BENZODIAZEPINES SCREEN,URINE NEGATIVE (NEGATIVE); URINE UROBILINOGEN 0.2 mg/dL (0.2 - 1)
[2022-01-22 00:27] LABS: BACTERIA,URINE FEW /HPF; EPITHELIAL CELLS,URINE FEW /LPF; RBC,URINE 0-5 /HPF (0-5); WBC,URINE (MAN) 0-5 /HPF (0-5)
== END 2022-01-22 01:34 | disposition home or self-care (01) ==
LOC: ER 22:28
DX: F10.129 Alcohol abuse with intoxication, unspecified (principal); Z20.822 Contact with and (suspected) exposure to COVID-19
CPT/HCPCS: 36415; 70450; 71045; 80053; 80307; 80320; 80329 ×2; 81001; 84702; 85025; 93005; 99284; U0002